=== PATIENT | male | born 1985 | race Caucasian/White ===

== ENCOUNTER 2025-03-21 21:48 | Emergency (ER) | payer OTHER ==
[~2025-03-21] VITALS: Ht 182.9 cm; Wt 124.0 kg
[2025-03-21] MEDS ORDERED: WELLBUTRIN XL300 MG PO (21:59)
[2025-03-21] MEDS ORDERED: CYCLOBENZAPRINE10 MG PO (22:00)
[2025-03-21] MEDS ORDERED: KETOROLAC TROMETHAMINE 60 MG/2 ML VIAL IM ONE (22:15)
[2025-03-21] MEDS ORDERED: methylPREDNISolone 4 MG HOME.PACK PO ONE (22:45)
[2025-03-21 22:56] VITALS: BP 149/86
== END 2025-03-21 22:57 | disposition home or self-care (01) ==
LOC: ED 21:48
DX: S39.012A Strain of muscle, fascia and tendon of lower back, initial encounter (principal); X50.1XXA Overexertion from prolonged static or awkward postures, initial encounter; Z79.899 Other long term (current) drug therapy
CPT/HCPCS: 96372; 99283; J1885